=== PATIENT | female | born 1965 | race Caucasian/White ===

== ENCOUNTER 2019-07-28 21:18 | Emergency (ER) | payer OTHER ==
[~2019-07-28] VITALS: Ht 165.1 cm; Wt 65.8 kg
[2019-07-28] MEDS ORDERED: LANTUS SUBQ (21:27)
[2019-07-28] MEDS ORDERED: NOVOLOG100 UNIT/M SUBQ (21:28)
[2019-07-28] MEDS ORDERED: MOBIC7.5 MG PO (22:45)
[2019-07-28 22:57] VITALS: BP 154/63
== END 2019-07-28 23:07 | disposition home or self-care (01) ==
LOC: ER 21:18
DX: S76.012A Strain of muscle, fascia and tendon of left hip, initial encounter (principal); E10.9 Type 1 diabetes mellitus without complications; Z87.891 Personal history of nicotine dependence; Z79.4 Long term (current) use of insulin; Z88.5 Allergy status to narcotic agent; X50.1XXA Overexertion from prolonged static or awkward postures, initial encounter; Y93.89 Activity, other specified; Y92.69 Other specified industrial and construction area as the place of occurrence of the external cause; Y99.9 Unspecified external cause status